=== PATIENT | male | born 1955 | race Caucasian/White ===

== ENCOUNTER → 2020-08-28 | Outpatient (CLI) | payer OTHER, MEDICARE ==
[~2020-08-28] MED LIST: ASPIR 8181 MG; ATORVASTATIN CA80 MG PO; IBUPROFEN200 M1 PO; LOPRESSOR25 PO; NEXIUM20 MG PO; PLAVIX 75 MG TA75 M1 PO
== END ==
LOC: SJCVC 13:14
PROVIDERS: ATTEND Internal Medicine Cardiovascular Disease
DX: I25.10 Atherosclerotic heart disease of native coronary artery without angina pectoris (principal); R07.9 Chest pain, unspecified; R06.00 Dyspnea, unspecified; I10 Essential (primary) hypertension; E78.00 Pure hypercholesterolemia, unspecified; K21.9 Gastro-esophageal reflux disease without esophagitis; I25.2 Old myocardial infarction; Z79.82 Long term (current) use of aspirin; Z79.899 Other long term (current) drug therapy; Z87.891 Personal history of nicotine dependence

== ENCOUNTER → 2020-09-05 | Outpatient (CLI) | payer OTHER, MEDICARE | LOC: SJCVCIMAG 09:39 | PROVIDERS: ATTEND Internal Medicine Cardiovascular Disease | DX: I45.10 Unspecified right bundle-branch block (principal); R00.0 Tachycardia, unspecified; I49.3 Ventricular premature depolarization; I25.10 Atherosclerotic heart disease of native coronary artery without angina pectoris; I10 Essential (primary) hypertension; E78.00 Pure hypercholesterolemia, unspecified; I25.2 Old myocardial infarction; K21.9 Gastro-esophageal reflux disease without esophagitis; Z79.82 Long term (current) use of aspirin; Z79.899 Other long term (current) drug therapy; Z87.891 Personal history of nicotine dependence ==

== ENCOUNTER → 2020-09-10 | Outpatient (CLI) | payer OTHER, MEDICARE ==
[~2020-09-10] VITALS: Ht 165.1 cm; Wt 75.0 kg
[~2020-09-10] MED LIST changes: +AMBIEN 10 MG TA10 MG PO; +ASA81BEC PO; +CARVEDILOL12.5 MG PO; +CHLORTHALIDONE25 MG PO; +CRESTOR10 MG PO; +HYDREA 500 MG500 M1 PO; +NEXIUM40 MG PO; +PLAVIX 75 MG TA75 MG PO
[2020-09-10 11:20] VITALS: BP 129/80
--- NOTE | 2020-09-10 16:12 | CATHLAB ---
[facility] [place] [address] INVASIVE PROCEDURE REPORT Name: MARIANNE MCMANUS Room #: REG [facility]#: [id number] Admission: 09/10/20 Attend Phys: Nico Noriega MD Discharge: Date of : 55 Report #: [id number] THIS REPORT FOR: cc: ANKUR OQUENDO FAMILY PHYSICIAN or PCP Nico Noriega MD ~ APPROVED REPORT Study performed: 09/10/2020 12:41:54 Patient Details Patient Status: Out-Patient Room #: The patient is a 65 year-old male Event Personnel Nico Noriega Director Communications, Meera Johnson RN RN, Sushila Velazquez RTR, Jerzy Gallardo Sherra RTR Monitor Procedures Performed Art Access - R femoral artery* Coronary Angiography Only [id number] CORANG 74059 Initial Mod Sed Same Phys/QHP Gr5y [id number] 88796 Mod Sed Same Phys/QHP Ea [id number] Hemostasis with Manual pressure Indication Dyspnea, Positive stress test, Chest pain Risk Factors Hypercholesterolemia, Coronary Artery DiseaseHypertension Previous Procedures/Diagnoses Previous AR Procedure Narrative The Right Groin^ was infiltrated with 1% Lidocaine subcutaneous anesthesia. A PINNACLE 4FR Sheath #[id number] sheath was inserted into the RFA^. Coronary angiography was performed using coronary diagnostic catheters. The right coronary system was accessed and visualized with a JR4 catheter. The left coronary system was accessed and visualized with a JL4 catheter. Hemostasis was obtained with manual pressure following sheath removal without any complications. The patient tolerated the procedure well and there were no complications associated with the procedure. There was no hematoma. [facility] [address] [place] [address] INVASIVE PROCEDURE REPORT Name: MARIETTAMARIANNE Sonu Room #: REG [facility] Minor#: [id number] Admission: 09/10/20 Attend Phys: Nico Noriega MD Discharge: Date of : 55 Report #: [id number] Intraoperative Conscious Sedation Sedation start time: 12:54 Case end Time: 13:21 Fentanyl 100 mcg Versed 2 mg Fluoro Time: 2.40 minutes Dose: DAP 4687.90 cGycm2 705 mGy Contrast Type and Amount: Omnipaque 45 ml Coronary Angiography The patient's coronary anatomy is right dominant. Diagnostic Cath Left Main The left main artery is a large-caliber vessel, patent with no flow-limiting lesions. LAD The LAD is a moderate-sized caliber vessel, traveling the anterior wall and wrapping around the apex. There is a mild stenosis in the midsegment, 30%. Diagonal 1 This is a moderate-sized caliber vessel, divides into 2 branches. There are no flow-limiting lesions. Diagonal 2 This is a small to moderate-sized caliber vessel, patent with no flow-limiting lesions. Circumflex The left circumflex artery supplies 1 OM vessel. There are no flow-limiting lesions. OM1 This is a small to moderate-sized caliber vessel, patent with no flow-limiting lesions. Right Coronary The RCA is a dominant vessel, with a mild stenosis in the proximal segment, 20%. R PDA This is a moderate-sized caliber vessel, patent with no flow-limiting lesions. RPLV This is a moderate-sized caliber vessel, patent with no flow-limiting lesions. Left Ventriculography Left Ventriculography was not performed. Ejection Fraction was >55% based off patient's Nuclear Cardiac Stress Test. Hemodynamics The aortic pressure is 127/75 mmHg with a mean of 100 mmHg. Conclusion 1. There is mild disease in the LAD and RCA. [facility] [address] [place] [address] INVASIVE PROCEDURE REPORT Name: MARIANNE MCMANUS Room #: REG [facility]#: [id number] Admission: 09/10/20 Attend Phys: Nico Noriega MD Discharge: Date of : 55 Report #: [id number] 2. There is normal LV systolic function. 3. Recommend guideline directed medical therapy. <ELECTRONICALLY SIGNED> By: Nico Noriega MD 09/10/20 161 11 Nico Noriega MD /INF
== END | disposition home or self-care (01) ==
LOC: CATH 07:32
PROVIDERS: ATTEND Internal Medicine Cardiovascular Disease
DX: R06.00 Dyspnea, unspecified (principal); I25.10 Atherosclerotic heart disease of native coronary artery without angina pectoris; R94.39 Abnormal result of other cardiovascular function study; R07.9 Chest pain, unspecified; I10 Essential (primary) hypertension; E78.00 Pure hypercholesterolemia, unspecified; I25.2 Old myocardial infarction; K21.9 Gastro-esophageal reflux disease without esophagitis; Z98.890 Other specified postprocedural states; Z79.899 Other long term (current) drug therapy; Z87.442 Personal history of urinary calculi

== ENCOUNTER → 2020-09-24 | Outpatient (CLI) | payer OTHER, MEDICARE | LOC: SJCVC 14:37 | PROVIDERS: ATTEND Internal Medicine Cardiovascular Disease | DX: I45.19 Other right bundle-branch block (principal); I25.10 Atherosclerotic heart disease of native coronary artery without angina pectoris; I10 Essential (primary) hypertension; E78.00 Pure hypercholesterolemia, unspecified; K21.9 Gastro-esophageal reflux disease without esophagitis; I25.2 Old myocardial infarction; Z87.891 Personal history of nicotine dependence ==

== ENCOUNTER → 2021-03-25 | Outpatient (CLI) | payer OTHER, MEDICARE | LOC: SJCVCIMAG 08:20 | PROVIDERS: ATTEND Internal Medicine Cardiovascular Disease | DX: I08.0 Rheumatic disorders of both mitral and aortic valves (principal); I10 Essential (primary) hypertension; I25.10 Atherosclerotic heart disease of native coronary artery without angina pectoris; E78.00 Pure hypercholesterolemia, unspecified; E78.5 Hyperlipidemia, unspecified; F32.9 Major depressive disorder, single episode, unspecified; Z79.82 Long term (current) use of aspirin; Z87.891 Personal history of nicotine dependence; Z72.89 Other problems related to lifestyle; Z79.899 Other long term (current) drug therapy; Z88.1 Allergy status to other antibiotic agents; Z88.8 Allergy status to other drugs, medicaments and biological substances ==